=== PATIENT | female | born 1970 | race Caucasian/White ===

== ENCOUNTER 2020-02-21 14:47 | Emergency (ER) | payer BC ==
[~2020-02-21] VITALS: Ht 172.7 cm; Wt 75.0 kg
[2020-02-21 15:31] VITALS: BP 132/76
== END 2020-02-21 17:00 | disposition home or self-care (01) ==
LOC: ER 15:35
DX: Z03.818 Encounter for observation for suspected exposure to other biological agents ruled out (principal)
CPT/HCPCS: 99283; C9803; U0003